=== PATIENT | female | born 1960 | race African-American/Black ===

== ENCOUNTER 2016-12-17 20:09 | Emergency (ER) | payer OTHER ==
[~2016-12-17] VITALS: Ht 160 cm; Wt 100.0 kg
[~2016-12-17 20:09] MED LIST: AMLO5TAB22 PO; BENA10 PO; HYDR-2768 PO; METO100T PO; SERT-129 PO
[2016-12-17 20:11] VITALS: BP 195/90; PULSE 106; RESP 16; TEMP 98.8; O2SAT 97
--- NOTE | 2016-12-17 20:37 | PD ---
HPI Chief Complaint: Fall Time Seen by Provider: 20:29 Travel History International Travel<30 days: No Contact w/Intl Traveler<30days: No Traveled to known affect area: No History of Present Illness HPI This is a 56-year-old female who presents to the emergency department having had a mechanical fall tripping on concrete hitting her head. Patient sustained a laceration to her forehead. She did not lose consciousness and has not vomited. She denies any numbness or weakness and denies any other injuries. She does have a moderate severity headache, constant. She doesn't remember when her last tetanus shot was. [facility] Past Medical History Diminished Hearing: No Hypertension: Yes Social History Alcohol Use: No Tobacco Use: No Allergies-Medications (Allergen,Severity, Reaction): Coded Allergies: No Known Allergies (Verified , 12/17/16) Reported Meds & Prescriptions Reported Meds & Active Scripts Active Active Prescriptions or Reported Medications Unobtainable Review of Systems Except as stated in HPI: all other systems reviewed are Neg Physical Exam Narrative GENERAL:Well appearing, no acute distress SKIN: 3 cm laceration on the left forehead with an underlying hematoma. HEAD: Atraumatic. Normocephalic. EYES: Pupils equal and round. No injection or drainage. ENT: Moist mucous membranes NECK: Trachea midline. No cervical spine tenderness. Full painless range of motion of the neck. CARDIOVASCULAR: Regular rate and rhythm. No murmur appreciated. RESPIRATORY: Clear to auscultation. Breath sounds equal bilaterally. GASTROINTESTINAL: Abdomen soft, non-tender, nondistended. MUSCULOSKELETAL: No obvious deformities. NEUROLOGICAL: Awake and alert. No obvious cranial nerve deficits. Moving all extremities. PSYCHIATRIC: Appropriate mood and affect; insight and judgment normal. Data Data Last Documented VS Vital Signs Date Time Temp Pulse Resp B/P Pulse Ox O2 Delivery O2 Flow Rate FiO2 12/17/16 20:11 98.8 106 16 195/[address] Brain W/O Iv Contrast(Rout) (12/17/16 ) Tetanus/Diphtheria Tox Adult (Tetanus/Di (12/17/16 20:45) Lidocai-Epi 1%-1:100,000 Inj (Xylocaine- (12/17/16 20:45) Acetaminophen (Tylenol) (12/17/16 20:45) MDM Medical Decision Making Medical Screen Exam Complete: Yes Emergency Medical Condition: Yes Interpretation(s) Afebrile, tachycardic, hypertensive CT head: No intracranial hemorrhage Differential Diagnosis Laceration, subdural hematoma, subarachnoid hemorrhage, concussion Narrative Course This is a 56-year-old female who sustained a closed head injury prior to arrival following a mechanical fall. She is laceration on her left forehead with a hematoma. CT of the head was negative for intracranial hemorrhage. Patient has no other injuries. She was given a tetanus shot. I think she can be discharged home. Diagnosis Primary Impression: Laceration of head Qualified Code: S01.81XA - Laceration of other part of head without foreign body, initial encounter Patient Instructions: General Instructions Additional Instructions: If you develop fevers, redness, swelling, or discharge from your wound return to the emergency room. Keep your wound dry for 24 hours. After that time, wash gently with warm soap and water. Do not use peroxide. Do not soak in baths or go swimming. Have your sutures removed in 5 days. Med/Other Pt SpecificInfo: No Change to Meds Scripts Unable to Obtain Active Prescriptions or Reported Meds Disposition: 01 DISCHARGE HOME Condition: Stable Sepideh Veliz MD Dec 17, 2016 20:37
[2016-12-17] MEDS ORDERED: ACETAMINOPHEN 325 MG TAB PO ONE (20:45)
[2016-12-17] MEDS ORDERED: TETANUS/DIPHTHERIA TOXOID ADULT 0.5 ML VIAL IM ONE (20:45)
[2016-12-17] MEDS ORDERED: LIDOCAINE 1%/EPINEPHrine 1:100,000 SOLN 20 ML VIAL INFIL ONE (20:45)
--- NOTE | 2016-12-17 21:31 | PD ---
Physical Exam Date Seen by Provider: Dec 17, 2016 Time Seen by Provider: 21:30 Narrative For full history and physical examination please see previous provider's note. I was asked to repair forehead laceration. Data Data Last Documented VS Vital Signs Date Time Temp Pulse Resp B/P Pulse Ox O2 Delivery O2 Flow Rate FiO2 12/17/16 20:11 98.8 106 16 195/[address] Brain W/O Iv Contrast(Rout) (12/17/16 ) Tetanus/Diphtheria Tox Adult (Tetanus/Di (12/17/16 20:45) Lidocai-Epi 1%-1:100,000 Inj (Xylocaine- (12/17/16 20:45) Acetaminophen (Tylenol) (12/17/16 20:45) MDM Medical Record Reviewed: Yes Supervised Visit with KARLOS: Yes Procedures Procedure Narrative LACERATION LOCATION: Left forehead LENGTH: 2 cm NUMBER OF STITCHES/MAGO: 8 stitches REPAIR: The area of the laceration was prepped with Betadine and sterilely draped. The laceration was infiltrated with 1% lidocaine with epi. The wound was copiously irrigated and explored without evidence of foreign body, tendon injury or neurovascular injury. The wound was closed using 5-0 Prolene. This was a 1 layer repair. A sterile dressing was applied. The patient was advised to keep the dressing clean and dry. Patient tolerated the procedure well. Scripts Unable to Obtain Active Prescriptions or Reported Meds Khadijah Queen Dec 17, 2016 21:31
--- NOTE | 2016-12-17 22:19 | RADRPT ---
EXAM DATE/TIME: 12/17/2016 21:00 [facility] COMPARISON: No previous studies available for comparison. INDICATIONS : Trauma, trip and fall. Complains of cephalgia. Laceration above left eyebrow. RADIATION DOSE: 56.35 CTDIvol (mGy) MEDICAL HISTORY : Hypertension. SURGICAL HISTORY : None. ENCOUNTER: Initial ACUITY: 1 day PAIN SCALE: 10/10 LOCATION: cranial TECHNIQUE: Multiple contiguous axial images were obtained of the head. Using automated exposure control and adj ustment of the mA and/or kV according to patient size, radiation dose was kept as low as reasonably a chievable to obtain optimal diagnostic quality images. FINDINGS: CEREBRUM: The ventricles are normal for age. No evidence of midline shift, mass lesion, hemorrhage or acute in farction. No extra-axial fluid collections are seen. POSTERIOR FOSSA: The cerebellum and brainstem are intact. The 4th ventricle is midline. The cerebellopontine angle i s unremarkable. EXTRACRANIAL: The visualized portion of the orbits is intact. SKULL: No radiopaque foreign bodies in the supraorbital soft tissues. The calvaria is intact. No evidence of skull fracture. CONCLUSION: Negative noncontrast CT brain. Lico Jin MD on December 17, 2016 at 22:16 Board Certified Radiologist. This report was verified electronically.
[2016-12-17 22:38] VITALS: BP 145/75
== END 2016-12-17 22:39 | disposition home or self-care (01) ==
LOC: NEPD 20:09
DX: S01.81XA Laceration without foreign body of other part of head, initial encounter (principal); Z23 Encounter for immunization; I10 Essential (primary) hypertension; W01.198A Fall on same level from slipping, tripping and stumbling with subsequent striking against other object, initial encounter; Y93.9 Activity, unspecified; Y92.9 Unspecified place or not applicable
CPT/HCPCS: 12011; 70450; 90471; 90714

== ENCOUNTER 2016-12-23 09:11 | Emergency (ER) | payer OTHER ==
[~2016-12-23] VITALS: Ht 160 cm; Wt 100.0 kg
[2016-12-23 09:12] VITALS: BP 136/100; PULSE 72; RESP 20; TEMP 98.2; O2SAT 97
--- NOTE | 2016-12-23 10:00 | PD ---
HPI Chief Complaint: Wound/Suture/Staple Re-Check Time Seen by Provider: 10:00 Travel History International Travel<30 days: No Contact w/Intl Traveler<30days: No Traveled to known affect area: No History of Present Illness HPI 56-year-old female presents to emergency department requesting suture removal to a laceration to left forehead. The sutures been in place for 6 days. She denies fever, vomiting. Denies drainage from the laceration site. Has no medical complaints. No known allergies. No other modifying factors or associated signs and symptoms. [facility] Past Medical History Diminished Hearing: No Hypertension: Yes Social History Alcohol Use: No Tobacco Use: No Substance Use: No Allergies-Medications (Allergen,Severity, Reaction): Coded Allergies: No Known Allergies (Verified , 12/17/16) Reported Meds & Prescriptions Reported Meds & Active Scripts Active Active Prescriptions or Reported Medications Unobtainable Review of Systems Except as stated in HPI: all other systems reviewed are Neg Physical Exam Narrative GENERAL: Well-nourished, well-developed female patient, in no acute distress SKIN: Warm and dry. Laceration to left forehead, just above the eyebrow, that is well approximated with sutures intact; without erythema, edema, drainage. No signs of infection. HEAD: Atraumatic. Normocephalic. EYES: Pupils equal and round. No scleral icterus. No injection or drainage. ENT: Mucosa pink and moist. Airway patent. NECK: Trachea midline. CARDIOVASCULAR: Regular rate. RESPIRATORY: No accessory muscle use. GASTROINTESTINAL: Obese. MUSCULOSKELETAL: No obvious deformities. No clubbing. No cyanosis. No edema. NEUROLOGICAL: Awake and alert. Oriented 3. No obvious cranial nerve deficits. Motor grossly within normal limits. Normal speech. PSYCHIATRIC: Appropriate mood and affect; insight and judgment normal. Data Data Last Documented VS Vital Signs Date Time Temp Pulse Resp B/P Pulse Ox O2 Delivery O2 Flow Rate FiO2 12/23/16 09:12 98.2 72 20 136/100 97 Room Air MDM Medical Decision Making Medical Screen Exam Complete: Yes Emergency Medical Condition: Yes Medical Record Reviewed: Yes Differential Diagnosis Wound recheck, suture removal, laceration Narrative Course 56-year-old female presents for suture removal of left forehead laceration. The laceration is well approximated with sutures intact and no signs of infection. It does not appear healed enough for sutures to be removed at this time. Instructed patient to come back to the emergency department or follow-up with primary care provider in 2-3 days for suture removal. Patient verbalizes understanding and agreement with treatment plan. Patient is medically cleared and stable for discharge. Discussed reasons to return to the emergency department. Instructed patient to follow up with primary care provider. Patient agrees with treatment plan. The patients vital signs are stable and the patient is stable for outpatient follow-up and treatment. Patient discharged home, stable and in no acute distress. Diagnosis Primary Impression: Encounter for wound re-check Referrals: Primary Care Physician Patient Instructions: Care For Your Stitches (ED), General Instructions Departure Forms: Tests/Procedures, Work Release Enter return to work date: Dec 26, 2016 Additional Instructions: Follow-up with primary care provider or return to the emergency department uin 2 -3 days for suture removal Return to the emergency department with worsening of symptoms Med/Other Pt SpecificInfo: No Change to Meds, No Meds Exist/No RX given Scripts Unable to Obtain Active Prescriptions or Reported Meds Disposition: 01 DISCHARGE HOME Condition: Stable Margo Castro Dec 23, 2016 10:00
== END 2016-12-23 10:27 | disposition home or self-care (01) ==
LOC: NEPK 09:11
DX: Z48.02 Encounter for removal of sutures (principal)
CPT/HCPCS: 99281

== ENCOUNTER 2016-12-26 09:03 | Emergency (ER) | payer OTHER ==
[~2016-12-26] VITALS: Ht 160 cm; Wt 97.0 kg
[2016-12-26 09:05] VITALS: BP 166/85; PULSE 76; RESP 20; TEMP 98.7; O2SAT 97
--- NOTE | 2016-12-26 09:18 | PD ---
HPI Chief Complaint: Wound/Suture/Staple Re-Check Time Seen by Provider: 09:18 Travel History International Travel<30 days: No Contact w/Intl Traveler<30days: No Traveled to known affect area: No PFSH Past Medical History Diminished Hearing: No Hypertension: Yes Social History Alcohol Use: No Tobacco Use: No Substance Use: No Allergies-Medications (Allergen,Severity, Reaction): Coded Allergies: No Known Allergies (Verified , 12/26/16) Reported Meds & Prescriptions Reported Meds & Active Scripts Active Active Prescriptions or Reported Medications Unobtainable Data Data Last Documented VS Vital Signs Date Time Temp Pulse Resp B/P Pulse Ox O2 Delivery O2 Flow Rate FiO2 12/26/16 09:05 98.7 76 20 166/85 97 Room Air MDM Scripts Unable to Obtain Active Prescriptions or Reported Meds Nicolás Mcneill Dec 26, 2016 09:18
--- NOTE | 2016-12-26 09:25 | PD ---
HPI Chief Complaint: Wound/Suture/Staple Re-Check Time Seen by Provider: 09:25 Travel History International Travel<30 days: No Contact w/Intl Traveler<30days: No Traveled to known affect area: No History of Present Illness HPI 56-year-old Afro-Chinese female presents the emergency department follow-up laceration to the left forehead 10 days prior to this visit. She states no concerns or problems but she needs sutures removed. Patient also requesting a return to work note. Patient has no signs or symptoms of infection or other problems. She has no known drug allergies. [facility] Past Medical History Diminished Hearing: No Hypertension: Yes Social History Alcohol Use: No Tobacco Use: No Substance Use: No Allergies-Medications (Allergen,Severity, Reaction): Coded Allergies: No Known Allergies (Verified , 12/26/16) Reported Meds & Prescriptions Reported Meds & Active Scripts Active Active Prescriptions or Reported Medications Unobtainable Review of Systems General / Constitutional: No: Fever Eyes: No: Visual changes HENT: No: Headaches Cardiovascular: No: Chest Pain or Discomfort Respiratory: No: Shortness of Breath Gastrointestinal: No: Abdominal Pain Genitourinary: No: Dysuria Musculoskeletal: No: Pain Skin: No Rash Neurologic: No: Weakness Psychiatric: No: Depression Endocrine: No: Polydipsia Hematologic/Lymphatic: No: Easy Bruising Physical Exam Narrative GENERAL: Patient appears in no acute distress. SKIN: Warm and dry. Well-healed laceration to the left medial forehead, just above the brow. No signs of wound dehiscence or cellulitis are noted. Sutures in place. HEAD: Atraumatic. Normocephalic. Nontender EYES: Pupils equal and round. No scleral icterus. No injection or drainage. ENT: No nasal bleeding or discharge. Mucous membranes pink and moist. Pharynx is clear MUSCULOSKELETAL: Extremities without clubbing, cyanosis, or edema. No obvious deformities. NEUROLOGICAL: Awake and alert. No obvious cranial nerve deficits. Motor grossly within normal limits. Five out of 5 muscle strength in the arms and legs. Normal speech. PSYCHIATRIC: Appropriate mood and affect; insight and judgment normal. Data Data Last Documented VS Vital Signs Date Time Temp Pulse Resp B/P Pulse Ox O2 Delivery O2 Flow Rate FiO2 12/26/16 09:05 98.7 76 20 166/85 97 Room Air MDM Medical Decision Making Medical Screen Exam Complete: Yes Emergency Medical Condition: Yes Medical Record Reviewed: Yes Differential Diagnosis Facial laceration. Wound check. Suture removal. Narrative Course Wound appears well-healed. No signs of wound dehiscence or cellulitis. Sutures removed by nursing staff without difficulty. Wound care is discussed with the patient. Released to work is given. Follow-up as needed. Diagnosis Primary Impression: Encounter for wound re-check Additional Impression: Encounter for removal of sutures Referrals: Primary Care Physician Patient Instructions: General Instructions Departure Forms: Work Release Enter return to work date: Dec 27, 2016 Additional Instructions: Wound appears well-healed. No signs of wound dehiscence or cellulitis. Sutures removed by nursing staff without difficulty. Wound care is discussed with the patient. Released to work is given. Follow-up as needed. Med/Other Pt SpecificInfo: Wound Care Scripts Unable to Obtain Active Prescriptions or Reported Meds Disposition: 01 DISCHARGE HOME Condition: Stable Nicolás Mcneill Dec 26, 2016 09:25
== END 2016-12-26 09:56 | disposition home or self-care (01) ==
LOC: NEPK 09:03
DX: Z48.02 Encounter for removal of sutures (principal); I10 Essential (primary) hypertension
CPT/HCPCS: 99281